=== PATIENT | male | born 2000 | race Caucasian/White ===

== ENCOUNTER 2019-08-15 16:30 | Emergency (ER) | payer OTHER, SELFPAY ==
[2019-08-15 16:46] VITALS: BP 132/72; PULSE 78; RESP 18; TEMP 37.2; O2SAT 97
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
== END 2019-08-15 17:20 | disposition home or self-care (01) ==
PROVIDERS: Emergency Provider Emergency Medicine
DX: T14.8XXA Other injury of unspecified body region, initial encounter (principal); V87.7XXA Person injured in collision between other specified motor vehicles (traffic), initial encounter
CPT/HCPCS: 99283